=== PATIENT | male | born 1985 | race Caucasian/White ===

== ENCOUNTER 2021-02-19 06:28 | Inpatient (IN) | payer OTHER ==
[~2021-02-19] VITALS: Ht 177.8 cm; Wt 72.6 kg
--- NOTE | 2021-02-19 06:50 | NUR ---
URINE COLLECTED AND SENT TO LAB.
--- NOTE | 2021-02-19 06:50 | NUR ---
PT BIBS WITH GENERALIZED STOMACH PAIN. NO N/V/D. PT ALERT AND ORIENTED X4. AMBULATORY WITH NON LABORED BREATHING.
[2021-02-19] MEDS ORDERED: LIDOCAINE VISCOUS 2% UD 15 ML UDC ONE (06:57)
[2021-02-19] MEDS ORDERED: MAG HYDROX/AL HYDROX/SIMETH 30 ML UDC ONE (06:57)
[2021-02-19] MEDS ORDERED: LIDOCAINE VISCOUS 2% UD 15 ML UDC MM ONE (07:00)
[2021-02-19] MEDS ORDERED: MAG HYDROX/AL HYDROX/SIMETH 30 ML UDC PO ONE (07:00)
--- NOTE | 2021-02-19 07:00 | NUR ---
LINE ESTABLISHED @ L AC 18G BLOOD TAKEN AND SENT TO LAB.
[2021-02-19 07:12] LABS: BASOPHILS # (AUTO) 0.1 K/uL (0.0-0.2); EOSINOPHILS % (AUTO) 1.9 % (0.0-6.0); HEMATOCRIT 46 % (33-45); HEMOGLOBIN 15.5 g/dL (11.5-14.8); LYMPHOCYTES # (AUTO) 0.8 K/uL (0.8-4.8); LYMPHOCYTES % (AUTO) 8.3 % (20.0-44.0); MEAN CORPUSCULAR HGB CONC 34 g/dl (31.0-36.0); MEAN CORPUSCULAR VOLUME 86 fL (82-100); MONOCYTES # (AUTO) 0.8 K/uL (0.1-1.30); MONOCYTES % (AUTO) 7.8 % (2.0-12.0); NEUTROPHILS # (AUTO) 8.2 K/uL (1.8-8.9); PLATELET COUNT (AUTO) 403 K/uL (150-450); RED BLOOD CELL COUNT(AUTO) 5.32 MIL/uL (4.0-5.2); WHITE BLOOD COUNT (AUTO) 10.1 K/uL (4.3-11.0)
[2021-02-19 07:25] LABS: CALCIUM, SERUM 8.9 mg/dL (8.5-10.1); CREATININE 0.9 mg/dL (0.6-1.3); POTASSIUM 4.2 mmol/L (3.5-5.1)
[2021-02-19 07:31] LABS: ALBUMIN 3.8 g/dL (3.4-5.0); BILIRUBIN,DIRECT 0.2 mg/dL (0.0-0.2); BILIRUBIN,TOTAL 0.5 mg/dL (0.2-1.0); TOTAL PROTEIN, SERUM 7.6 g/dL (6.4-8.2)
--- NOTE | 2021-02-19 07:49 | NUR ---
wheeled patient via [employer] accompanied by [employer] for ct.
[2021-02-19] MEDS ORDERED: IV NS 0.9% 250 ML IV ONE (07:50)
[2021-02-19] MEDS ORDERED: IOHEXOL-300 100 ML VIAL IV ONE (07:50)
[2021-02-19] MEDS ORDERED: CT SWABBABLE VALVE TRANS SET 1 EA INFUS.SET MC ONE (07:50)
--- NOTE | 2021-02-19 08:00 | NUR ---
patient came back from ct.
--- NOTE | 2021-02-19 08:22 | NUR ---
covid swab collected and sent to lab.
--- NOTE | 2021-02-19 08:30 | NUR ---
MOVE SHEET SUBMITTED.
[2021-02-19] MEDS ORDERED: ONDANSETRON HCL/PF 4 MG/2 ML VIAL ONE (09:50)
[2021-02-19] MEDS ORDERED: ONDANSETRON HCL/PF 4 MG/2 ML VIAL IV ONE (10:00)
--- NOTE | 2021-02-19 11:02 | NUR ---
GOT BED 320-2
--- NOTE | 2021-02-19 11:21 | NUR ---
CALLED DR. ANNA LEFT MSG. [phone]
--- NOTE | 2021-02-19 11:24 | NUR ---
report given to Holden DONNELLY for greg.
--- NOTE | 2021-02-19 11:33 | NUR ---
wheeled patient via gurney accompanied by EMT in no distress. RN asssigned at bedside to assume care.
--- NOTE | 2021-02-19 11:39 | NUR ---
RN NOTES PATIENT ARRIVED TO UNIT AT ROOM 320-2 VIA GURNEY, ACCOMPANIED BY 1 PHYSICIAN SUPPORT COORDINATOR. PATIENT ABLE TO AMBULATE TO BED W/ STEADY GAIT.
[2021-02-19] MEDS: IV D5/ 0.9% NACL 1,000 ML IV PRN ×2 (12:21→23:46)
[2021-02-19] MEDS ORDERED: ONDANSETRON HCL/PF 4 MG/2 ML VIAL IVP PRN (12:30)
[2021-02-19] MEDS ORDERED: LORAZEPAM INJ 2 MG/ML VIAL IV PRN (12:30)
[2021-02-19] MEDS ORDERED: Z GUARD REMEDY 2 OZ OINT TP PRN (12:30)
[2021-02-19] MEDS: PANTOPRAZOLE 40 MG VIAL IV SCH (12:44)
[2021-02-19] MEDS: MORPHINE SULFATE INJ 2 MG/ML DISP.SYRIN IV PRN ×3 (13:06→21:24)
--- NOTE | 2021-02-19 13:49 | NUR ---
RN NOTES PATIENT WAS SEEN BY DR. SUAREZ TODAY W/ ORDERS NOTED.
[2021-02-19 16:05] VITALS: BP 128/86
--- NOTE | 2021-02-19 18:43 | NUR ---
MS RN CLOSING NOTES PT IS IN BED, RESTING COMFORTABLY. PT IS AO x4. NO S/SX OF RESPIRATORY DISTRESS NOTED. NO SOB NOTED. PT IS ON ROOM AIR AND TOLERATING WELL. IV ACCESS IN LEFT AC #20 WITH D5NS RUNNING AT 100 ML/HR. NG TUBE IN PLACE IN LEFT NARE ON LOW INTERMITTENT SUCTION DRAINING BROWN AND BLOODY DRAINAGE. PATIENT'S PAIN TREATED. ALL NEEDS MET. PT KEPT CLEAN AND DRY. SAFETY MEASURES IN PLACE: BED IN LOWEST, LOCKED POSITION, BRAKES ON, SIDERAILS UPx2. WILL ENDORSE TO ONCOMING SHIFT.
[2021-02-19 20:00] VITALS: BP 127/77
[2021-02-19 20:31] VITALS: BP 127/77
[2021-02-20] MEDS: MORPHINE SULFATE INJ 2 MG/ML DISP.SYRIN IV PRN ×2 (02:06→09:51)
[2021-02-20 04:22] VITALS: BP 127/83
[2021-02-20 06:28] LABS: BASOPHILS % (AUTO) 0.3 % (0.0-2.0); EOSINOPHILS % (AUTO) 1.1 % (0.0-6.0); HEMATOCRIT 41 % (39-51); HEMOGLOBIN 13.4 g/dL (13.5-17.5); LYMPHOCYTES # (AUTO) 0.7 K/uL (0.8-4.8); MEAN CORPUSCULAR HGB CONC 33 g/dl (31.0-36.0); MEAN CORPUSCULAR VOLUME 87 fL (80-96); MONOCYTES # (AUTO) 0.9 K/uL (0.1-1.30); MONOCYTES % (AUTO) 14.3 % (2.0-12.0); NEUTROPHILS # (AUTO) 4.8 K/uL (1.8-8.9); NEUTROPHILS % (AUTO) 73.3 % (43.0-81.0); PLATELET COUNT (AUTO) 359 K/uL (150-450); RED BLOOD CELL COUNT(AUTO) 4.66 MIL/uL (4.5-6.0); WHITE BLOOD COUNT (AUTO) 6.6 K/uL (4.3-11.0)
[2021-02-20 06:38] LABS: CALCIUM, SERUM 8.3 mg/dL (8.5-10.1); CREATININE 0.8 mg/dL (0.6-1.3); MAGNESIUM 2.3 mg/dL (1.8-2.4); PHOSPHORUS 3.3 mg/dL (2.5-4.9); POTASSIUM 4.4 mmol/L (3.5-5.1)
--- NOTE | 2021-02-20 06:40 | NUR ---
ALERT AND ORIENTED X4, STABLE ON ROOM AIR, ABDOMINAL DISCOMFORT, NG TUBE IN PLACE, CONFIRMED BY XRAY, ON LOW INTERMITTENT SUCTION, OUTPUT BROWN, MORPHINE 4 MG IV Q4HRS WITH ADEQUATE RELIEF. FOR GI CONSULT WITH DR. ANNA, CONTINUE SUPPORITVE CARE AND PAIN MANAGEMENT.
--- NOTE | 2021-02-20 07:30 | NUR ---
MS RN OPENING NOTES RECEIVED PT IS IN BED, RESTING COMFORTABLY. PT IS AO x4. NO S/SX OF RESPIRATORY DISTRESS NOTED. NO SOB NOTED. PT IS ON ROOM AIR AND TOLERATING WELL. IV ACCESS IN LEFT AC #20 WITH D5NS RUNNING AT 100 ML/HR. NG TUBE IN PLACE IN LEFT NARE ON LOW INTERMITTENT SUCTION DRAINING BROWN DRAINAGE. NO C/O PAIN AT THIS TIME. SAFETY MEASURES IN PLACE: BED IN LOWEST, LOCKED POSITION, BRAKES ON, SIDE RAILS UPx2. WILL CONTINUE TO MONITOR ACCORDINGLY.
[2021-02-20 08:00] VITALS: BP 131/90
[2021-02-20] MEDS: PANTOPRAZOLE 40 MG VIAL IV SCH (08:30)
[2021-02-20] MEDS: IV D5/ 0.9% NACL 1,000 ML IV PRN ×2 (09:45→21:14)
--- NOTE | 2021-02-20 09:55 | NUR ---
PAIN MANAGEMENT PATIENT HAS C/O PAIN ON ABDOMINAL AREA WITH PAIN SCALE OF 9/10, DUE PRN PAIN MEDICATION GIVEN ORDERED.
[2021-02-20] MEDS ORDERED: DIATR MEGLU/DIATRIZOATE SODIUM 120 ML BOTTLE (GASTROGRAPHIN) ONE (13:41)
--- NOTE | 2021-02-20 14:45 | NUR ---
RN NOTES PATIENT WAS PICKED BY [facility] FROM RADIOLOGY DEPARTMENT FRO SMALL BOWEL THROUGH PROCEDURE. LEFT IN STABLE CONDITION.
--- NOTE | 2021-02-20 15:15 | NUR ---
RN NOTES NGT REMOVED ORDERED.
[2021-02-20 16:00] VITALS: BP 141/83
--- NOTE | 2021-02-20 18:33 | NUR ---
MS RN CLOSING NOTES PT IS IN BED, RESTING COMFORTABLY. PT IS AO x4. NO S/SX OF RESPIRATORY DISTRESS NOTED. NO SOB NOTED. PT IS ON ROOM AIR AND TOLERATING WELL. IV ACCESS IN LEFT AC #20 WITH D5NS RUNNING AT 100 ML/HR. NO C/O PAIN AT THIS TIME. SAFETY MEASURES IN PLACE: BED IN LOWEST, LOCKED POSITION, BRAKES ON, SIDE RAILS UPx2. ALL NEEDS ATTENDED AND MET. WILL ENDORSE TO ONCOMING SHIFT FOR JIGNESH.
--- NOTE | 2021-02-20 19:55 | NUR ---
MS/RN OPENING NOTE RECEIVED PATIENT SLEEPING IN BED. ALERT AND ORIENTED X 4. ABLE TO MAKE NEEDS KNOWN. DENIES PAIN AT THIS TIME. CONTINUES ON ROOM AIR WITH NO S/SX OF RESPIRATORY DISTRESS NOTED. IV ACCESS TO RIGHT AC #20G INTACT AND PATENT. CONTINUES ON IVF D5 NS @ 100ML/HR. CONTINUES ON CLEAR LIQUID DIET WITH NO S/SX OF NAUSEA OR VOMITING. CALL LIGHT WITHIN REACH. ASPIRATION, FALL AND SAFETY PRECAUTIONS MAINTAINED. WILL CONTINUE TO MONITOR.
[2021-02-20 20:00] VITALS: BP 134/78
--- NOTE | 2021-02-21 06:30 | NUR ---
MS/RN CLOSING NOTE PATIENT CURRENTLY SLEEPING IN BED. ALERT AND ORIENTED X 4. ABLE TO MAKE NEEDS KNOWN. DENIES PAIN AT THIS TIME. CONTINUES ON ROOM AIR WITH NO S/SX OF RESPIRATORY DISTRESS NOTED. IV ACCESS TO RIGHT AC #20G INTACT AND PATENT. CONTINUES ON IVF D5 NS @ 100ML/HR. CONTINUES ON CLEAR LIQUID DIET WITH NO S/SX OF NAUSEA OR VOMITING. PATIENT HAD MULTIPLE LARGE, LOOSE BM'S THIS SHIFT. CALL LIGHT WITHIN REACH. ASPIRATION, FALL AND SAFETY PRECAUTIONS MAINTAINED. WILL ENDORSE PLAN OF CARE TO ONCOMING SHIFT.
[2021-02-21] MEDS: IV D5/ 0.9% NACL 1,000 ML IV PRN (06:41)
[2021-02-21 06:49] LABS: BASOPHILS % (AUTO) 0.6 % (0.0-2.0); HEMATOCRIT 39 % (39-51); HEMOGLOBIN 13.3 g/dL (13.5-17.5); LYMPHOCYTES # (AUTO) 0.9 K/uL (0.8-4.8); LYMPHOCYTES % (AUTO) 17.5 % (20.0-44.0); MEAN CORPUSCULAR HGB CONC 34 g/dl (31.0-36.0); MEAN CORPUSCULAR VOLUME 87 fL (80-96); MONOCYTES % (AUTO) 18.7 % (2.0-12.0); NEUTROPHILS # (AUTO) 3.2 K/uL (1.8-8.9); NEUTROPHILS % (AUTO) 60.2 % (43.0-81.0); PLATELET COUNT (AUTO) 358 K/uL (150-450); RED BLOOD CELL COUNT(AUTO) 4.51 MIL/uL (4.5-6.0); WHITE BLOOD COUNT (AUTO) 5.3 K/uL (4.3-11.0)
[2021-02-21 07:06] LABS: CALCIUM, SERUM 8.4 mg/dL (8.5-10.1); MAGNESIUM 2.2 mg/dL (1.8-2.4); PHOSPHORUS 3.4 mg/dL (2.5-4.9); POTASSIUM 4.2 mmol/L (3.5-5.1)
--- NOTE | 2021-02-21 07:55 | NUR ---
MS RN OPENING NOTES RECEIVED PT IS IN BED, RESTING COMFORTABLY. PT IS AO x4. NO S/SX OF RESPIRATORY DISTRESS NOTED. NO SOB NOTED. PT IS ON ROOM AIR AND TOLERATING WELL. IV ACCESS IN LEFT AC #20 WITH D5NS RUNNING AT 100 ML/HR. ABLE TO TOLERATE CLEAR LIQUIDS DIET, NO VOMITTING NO C/O OF NAUSEA AT THIS TIME. NO C/O PAIN AT THIS TIME. SAFETY MEASURES IN PLACE: BED IN LOWEST, LOCKED POSITION, BRAKES ON, SIDE RAILS UPx2. WILL CONTINUE TO MONITOR ACCORDINGLY.
[2021-02-21 08:00] VITALS: BP 120/76
[2021-02-21] MEDS: PANTOPRAZOLE 40 MG VIAL IV SCH (08:12)
[2021-02-21 08:27] LABS: EOSINOPHILS % (MANUAL) 5 % (0-4); LYMPHOCYTES % (MANUAL) 15 % (16-48); MONOCYTES % (MANUAL) 18 % (0-11.0); NEUTROPHILS % (MANUAL) 62 (42-76)
--- NOTE | 2021-02-21 13:16 | NUR ---
MS TEST FIXTURE ASSEMBLER NOTES DISCHARGE PATIENT IN STABLE CONDITION. VITAL SIGNS WITHIN NORMAL LIMITS. HEALTH EDUCATION AND INSTRUCTIONS PROVIDED TO PATIENT, INSTRUCTED ON FOLLOW UP WITH PCP FOR GI REFERRAL, PATIENT VERBALIZED UNDERSTANDING. IV ACCESS REMOVED, COVERED WITH GAUZE AND SECURED WITH TAPE. NO BLEEDING NOTED. ARM BAND REMOVED. BELONGINGS SIGNED ADN ACCOUNTED FOR. PATIENT LEFT UNIT WITH FAMILY. CHARGE NURSE AND MD INFORMED.
== END 2021-02-21 13:10 | disposition home or self-care (01) | DRG 390 ==
LOC: EDSEX 06:28 → ER 06:28 → MED 11:31
PROVIDERS: ADMIT Nurse Practitioner Acute Care; ATTEND Nurse Practitioner Acute Care
DX: K56.609 Unspecified intestinal obstruction, unspecified as to partial versus complete obstruction (principal); K52.3 Indeterminate colitis; Z20.822 Contact with and (suspected) exposure to COVID-19
CPT/HCPCS: 36415; 74018; 74250-TC; 80048-TC; 80076-TC; 83690-TC; 83735-TC; 84100-TC; 85025-TC; 85730-TC; 87081-TC; C9113; C9803; G0378; J2270; J2405; J7042; J7050; Q9963; Q9967

== ENCOUNTER 2021-03-26 05:52 | Inpatient (IN) | payer OTHER ==
[~2021-03-26] VITALS: Ht 182.9 cm; Wt 72.6 kg
--- NOTE | 2021-03-26 06:05 | NUR ---
PT AAOX4. BIB BROTHER C/O GENERALIZED ABD PAIN X 6 HOURS. +N/V. LBM: 7 HOURS AGO. PLACED IN BED 2 ON MONITOR AND PULSE OX. AWAITING ORDERS.
[2021-03-26] MEDS ORDERED: IV NS 0.9% 1,000 ML BAG IV ONE (06:30)
[2021-03-26] MEDS ORDERED: MORPHINE SULFATE INJ 2 MG/ML DISP.SYRIN IV ONE (06:30)
[2021-03-26] MEDS ORDERED: ONDANSETRON HCL/PF 4 MG/2 ML VIAL IVP ONE (06:30)
[2021-03-26 06:36] LABS: BILIRUBIN,URINE SMALL (NEGATIVE); LEUKOCYTE ESTERASE ,URINE NEGATIVE (NEGATIVE); NITRITE, URINE NEGATIVE (NEGATIVE); PROTEIN,URINE TRACE mg/dl (NEGATIVE); UGLUCOSE NEGATIVE (NEGATIVE); UROBILINOGEN,URINE 0.2 EU/dL (0.2)
[2021-03-26] MEDS ORDERED: MORPHINE SULFATE INJ 4 MG/ML DISP.SYRIN ONE (06:39)
[2021-03-26] MEDS ORDERED: ONDANSETRON HCL/PF 4 MG/2 ML VIAL ONE (06:39)
--- NOTE | 2021-03-26 06:55 | NUR ---
URINE COLLECTED, SENT TO LAB.
[2021-03-26 06:57] LABS: COLOR,URINE DARK YELLOW (YELLOW)
--- NOTE | 2021-03-26 07:01 | NUR ---
PT WAS TAKEN TO CT
[2021-03-26 07:04] LABS: BASOPHILS % (AUTO) 0.2 % (0.0-2.0); EOSINOPHILS % (AUTO) 0.2 % (0.0-6.0); HEMATOCRIT 44 % (39-51); HEMOGLOBIN 14.8 g/dL (13.5-17.5); LYMPHOCYTES # (AUTO) 0.5 K/uL (0.8-4.8); LYMPHOCYTES % (AUTO) 4.6 % (20.0-44.0); MEAN CORPUSCULAR HGB CONC 34 g/dl (31.0-36.0); MEAN CORPUSCULAR VOLUME 86 fL (80-96); MONOCYTES # (AUTO) 0.7 K/uL (0.1-1.30); MONOCYTES % (AUTO) 6.2 % (2.0-12.0); NEUTROPHILS # (AUTO) 10.1 K/uL (1.8-8.9); NEUTROPHILS % (AUTO) 88.8 % (43.0-81.0); PLATELET COUNT (AUTO) 369 K/uL (150-450); RED BLOOD CELL COUNT(AUTO) 5.12 MIL/uL (4.5-6.0); WHITE BLOOD COUNT (AUTO) 11.4 K/uL (4.3-11.0)
[2021-03-26] MEDS ORDERED: IOHEXOL-300 100 ML VIAL IV ONE (07:09)
[2021-03-26] MEDS ORDERED: CT SWABBABLE VALVE TRANS SET 1 EA INFUS.SET MC ONE (07:09)
[2021-03-26] MEDS ORDERED: IV NS 0.9% 250 ML IV ONE (07:10)
[2021-03-26 07:12] LABS: ALBUMIN 3.4 g/dL (3.4-5.0); BILIRUBIN,DIRECT 0.2 mg/dL (0.0-0.2); BILIRUBIN,TOTAL 0.6 mg/dL (0.2-1.0); CALCIUM, SERUM 8.2 mg/dL (8.5-10.1); CREATININE 0.9 mg/dL (0.6-1.3); POTASSIUM 3.9 mmol/L (3.5-5.1); TOTAL PROTEIN, SERUM 7.1 g/dL (6.4-8.2)
[2021-03-26 07:59] LABS: BACTERIA,URINE Rare /HPF (None Seen); WBC,URINE 0-2 /HPF (0-3)
[2021-03-26 08:00] LABS: SQUAMOUS EPITHELIAL CELL,UR Few /HPF (None Seen)
[2021-03-26 08:01] LABS: RBC,URINE 0-2 /HPF (0-2)
[2021-03-26 08:02] LABS: MUCUS,URINE Moderate /LPF (None Seen)
--- NOTE | 2021-03-26 08:29 | NUR ---
CALLED DR. ANNA LEFT MSG.
--- NOTE | 2021-03-26 08:40 | NUR ---
MOVE SHEET SUBMITTED.
--- NOTE | 2021-03-26 08:46 | NUR ---
COVID SWAB DONE AND SENT TO LAB
--- NOTE | 2021-03-26 09:32 | NUR ---
CLINICALS SUBMITTED. AUTHORIZATION OBTAINED PER ADMITTING DEPT.
--- NOTE | 2021-03-26 10:06 | NUR ---
Pt accepted to 314-1
--- NOTE | 2021-03-26 10:55 | NUR ---
REPORT GIVEN TO DAVE FOR JIGNESH
--- NOTE | 2021-03-26 10:55 | NUR ---
CALLED AND LEFT MESSAGE
--- NOTE | 2021-03-26 11:12 | NUR ---
PAGED EPIC TEXTURING MACHINE FIXER
[2021-03-26] MEDS ORDERED: IV D5/0.45 NACL 1,000 ML IV ONE (11:30)
--- NOTE | 2021-03-26 11:42 | NUR ---
PAGED EPIC DRY CURER AGAIN
--- NOTE | 2021-03-26 11:56 | NUR ---
DR. LORENZANA ON THE PHONE WITH JIMMIE GRADY
--- NOTE | 2021-03-26 12:25 | NUR ---
MS RN NOTES RECEIVED ADMISSION FROM ER. PATIENT MEDICALLY STABLE AT THIS TIME. VS WNL. PATIENT A/O X4, ABLE TO MAKE NEEDS KNOWN, ON ROOM AIR; BREATHING EVEN AND UNLABORED AT THIS TIME. RAC IV ACCESS G # 18 PRESENT AND INTACT INFUSING D5 1/2 NS @ 100 MLS/HR. SAFETY PRECAUTIONS IN PLACE; BED IN LOW POSITION AND LOCKED, RAILS UP X2, CALL LIGHT WITHIN REACH. WILL CONTINUE TO MONITOR PATIENT.
[2021-03-26] MEDS ORDERED: ACETAMINOPHEN 650 MG/SUPP.RECT RC PRN (13:30)
[2021-03-26] MEDS ORDERED: ONDANSETRON HCL/PF 4 MG/2 ML VIAL IVP PRN (13:30)
[2021-03-26] MEDS: PANTOPRAZOLE 40 MG VIAL IV SCH (13:55)
[2021-03-26] MEDS: ENOXAPARIN SODIUM 40 MG/0.4 ML DISP.SYRIN SQ SCH (13:56)
[2021-03-26] MEDS ORDERED: DIATR MEGLU/DIATRIZOATE SODIUM 120 ML BOTTLE (GASTROGRAPHIN) ONE (15:41)
--- NOTE | 2021-03-26 18:36 | NUR ---
LIGHT ARMORED VEHICLE OFFICER CLOSING NOTES PATIENT REMAINS IN BED, AWAKE, A/OX4. PATIENT ON ROOM AIR; BREATHING EVEN AND UNLABORED AT THIS TIME; NO SOB NOTED DURING SHIFT. NO COMPLAINS OF AT THIS TIME. RFA G #18 PRESENT AND INTACT INFUSING NS @ 100 MLS/HR. ALL NEEDS ATTENDED DURING THE DAY. SAFETY PRECAUTIONS IN PLACE; BED IN LOW POSITION AND LOCKED, RAILS UP X2, CALL LIGHT WITHIN REACH. WILL ENDORSE TO PIPE WRAPPING MACHINE OPERATOR NURSE.
--- NOTE | 2021-03-26 19:10 | NUR ---
MS RN OPENING NOTES: RECEIVED PATIENT IN BED, AWAKE, A/O X4. NO S/S OF DISTRESS NOTED. CALL LIGHT WITHIN REACH. BED IN LOWEST AND LOCKED POSITION. NPO, PATIENT IS AWARE.
[2021-03-26 20:00] VITALS: BP 128/73
--- NOTE | 2021-03-26 21:35 | NUR ---
INFORMED RESIDENTIAL PROGRAM WORKER MIRIAN RE: COMPLAINING OF ABDOMINAL PAIN 01/02.
[2021-03-26] MEDS ORDERED: MORPHINE SULFATE INJ 4 MG/ML DISP.SYRIN IV PRN (22:00)
--- NOTE | 2021-03-27 06:01 | NUR ---
RN OPENING NOTES: PATIENT IN BED, AWAKE, A/O X4. NO S/S OF DISTRESS NOTED. CALL LIGHT WITHIN REACH. BED IN LOWEST AND LOCKED POSITION. HAD AN EPISODE OF VOMITTING X1 LAST NIGHT, ZOFRAN 4MG IV GIVEN. PATIENT RESTED THROUGHOUT THE NIGHT. AMBULATORY. Addendum: 03/27/21 at 0614 by FELICITA IBARRA RN MS DONNELLY CLOSING NOTES:
[2021-03-27 06:36] LABS: BASOPHILS % (AUTO) 0.8 % (0.0-2.0); HEMATOCRIT 37 % (39-51); HEMOGLOBIN 12.5 g/dL (13.5-17.5); LYMPHOCYTES # (AUTO) 1.1 K/uL (0.8-4.8); LYMPHOCYTES % (AUTO) 28.9 % (20.0-44.0); MEAN CORPUSCULAR HGB CONC 34 g/dl (31.0-36.0); MEAN CORPUSCULAR VOLUME 86 fL (80-96); MONOCYTES # (AUTO) 0.6 K/uL (0.1-1.30); MONOCYTES % (AUTO) 15.6 % (2.0-12.0); NEUTROPHILS % (AUTO) 53.7 % (43.0-81.0); PLATELET COUNT (AUTO) 334 K/uL (150-450); RED BLOOD CELL COUNT(AUTO) 4.27 MIL/uL (4.5-6.0); WHITE BLOOD COUNT (AUTO) 3.6 K/uL (4.3-11.0)
[2021-03-27 07:10] LABS: CALCIUM, SERUM 7.8 mg/dL (8.5-10.1); CREATININE 0.8 mg/dL (0.6-1.3); MAGNESIUM 2.2 mg/dL (1.8-2.4); PHOSPHORUS 3.8 mg/dL (2.5-4.9); POTASSIUM 4.1 mmol/L (3.5-5.1)
--- NOTE | 2021-03-27 07:30 | NUR ---
MS RN OPENING NOTES RECEIVED PATIENT ON BED, AWAKE AND A/O X4. ON ROOM AIR TOLERATING WELL. NO SOB NOTED. NOT IN DISTRESS. WITH NO COMPLAINTS OF PAIN OR DISCOMFORT AT THIS TIME. WITH IV ACCESS AT RIGHT AC G18, SALINE LOCKED, INTACT AND PATENT. SAFETY MEASURES IN PLACED. CALL LIGHT WITHIN REACH. BED ON LOWEST AND LOCKED POSITION, SIDE RAILS UP X2. WILL CONTINUE TO MONITOR.
[2021-03-27 08:00] VITALS: BP 105/65
[2021-03-27] MEDS: PANTOPRAZOLE 40 MG VIAL IV SCH (08:51)
[2021-03-27] MEDS: ENOXAPARIN SODIUM 40 MG/0.4 ML DISP.SYRIN SQ SCH (08:51)
--- NOTE | 2021-03-27 13:40 | NUR ---
MS BODYWORK THERAPIST NOTES PATIENT IS FOR DISCHARGE PER DOCTOR'S ORDER. FOR DISCHARGE TO HOME. PRESCRIPTION GIVEN TO PATIENT AND DISCHARGE INSTRUCTION PROVIDED. PATIENT VERBALIZED UNDERSTANDING. ALL BELONGINGS CHECKED AND ACCOUNTED FOR. INSTRUCTED PATIENT TO FOLLOW UP WITH PCP 1 WEEK AFTER DISCHARGE. ASSISTED PATIENT TO THE LOBBY AND LEFT VIA PRIVATE CAR IN STABLE CONDITION.
[2021-03-27] MEDS ORDERED: DICY10CA37 PO (15:09)
== END 2021-03-27 13:45 | disposition home or self-care (01) | DRG 390 ==
LOC: ER 05:56 → MED 10:30
PROVIDERS: ADMIT Nurse Practitioner Acute Care; ATTEND Nurse Practitioner Acute Care
DX: K56.609 Unspecified intestinal obstruction, unspecified as to partial versus complete obstruction (principal); K52.9 Noninfective gastroenteritis and colitis, unspecified; D72.829 Elevated white blood cell count, unspecified; F90.9 Attention-deficit hyperactivity disorder, unspecified type; N40.0 Benign prostatic hyperplasia without lower urinary tract symptoms; Z20.822 Contact with and (suspected) exposure to COVID-19
CPT/HCPCS: 36415; 71045-TC; 74018; 74250-TC; 80048-TC; 80061-TC; 80076-TC; 81001; 83605-TC; 83690-TC; 83735-TC; 84100-TC; 85025-TC; 85652-TC; 85730-TC; 86140-TC; 87040-TC; 87081-TC; C9113; C9803; G0378; J1650; J2270; J2405; J3490; J7030; J7050; Q9963; Q9967